=== PATIENT | female | born 1960 | race Caucasian/White ===

== ENCOUNTER 2025-08-13 06:24 | Day surgery (SDC) | payer OTHER ==
[2025-08-06 08:56] VITALS: BMI 32.5
[2025-08-13] MEDS ORDERED: PROPOFOL 40 ML ONE (09:00)
[2025-08-13] MEDS ORDERED: Lidocaine 1% PF 5 ML VIAL ONE (09:01)
[2025-08-13] MEDS ORDERED: PHENYLEPHRINE-NS 100 MCG/ML 10 ML SYRINGE ONE (10:03)
== END 2025-08-13 10:40 | disposition home or self-care (01) ==
LOC: CSHSDC 06:24
PROVIDERS: ATTEND Surgery
PROC: 0DBE8ZZ Excision of Large Intestine, Via Natural or Artificial Opening Endoscopic (ICD-10-PCS; principal; 2025-08-13)
DX: Z12.11 Encounter for screening for malignant neoplasm of colon (principal); K63.5 Polyp of colon; I10 Essential (primary) hypertension; E78.2 Mixed hyperlipidemia; Z88.6 Allergy status to analgesic agent; Z88.1 Allergy status to other antibiotic agents; Z91.018 Allergy to other foods; Z87.891 Personal history of nicotine dependence; Z79.899 Other long term (current) drug therapy; Z86.0101 Personal history of adenomatous and serrated colon polyps
CPT/HCPCS: 88305; J2250; J2704